=== PATIENT | female | born 1985 | race Caucasian/White ===

== ENCOUNTER 2018-12-10 14:28 | Emergency (ER) | payer SELFPAY ==
--- NOTE | 2018-12-10 16:03 | US ---
ULTRASOUND EXAMINATION OF the right lower extremity WITH DOPPLER HISTORY: Pain FINDINGS: Examination of the right leg was performed from the groin to the calf region. All visualized segments including common femoral, proximal greater saphenous, superficial femoral, popliteal and calf veins appear patent with good compressibility and augmentation. There is no evidence of deep vein thrombosis. There is a filling defect within the right superficial vein of the calf. IMPRESSION: 1. No evidence of a DVT. 2. Likely a small thrombus within a superficial posterior right calf vein.
--- NOTE | 2018-12-10 16:41 | EDM.PDOC ---
ED HPI GENERAL MEDICAL PROBLEM - General Chief Complaint: Lower Extremity Injury/Pain Stated Complaint: BLOOD CLOTS IN LEGS Time Seen by Provider: 12/10/18 16:38 Source of Information: Reports: Patient - History of Present Illness INITIAL COMMENTS - FREE TEXT/NARRATIVE: HISTORY AND PHYSICAL: History of present illness: [Patient presents with history of DVT she has right calf pain she is concerned about the possibility of another DVT there is no redness or swelling with Homans is positive No fever nausea vomiting chills sweats no shortness br eath] Review of systems: As per history of present illness and below otherwise all systems reviewed and negative. Past medical history: As per history of present illness and as reviewed below otherwise noncontributory. Surgical history: As per history of present illness and as reviewed below otherwise noncontributory. Social history: No reported history of drug or alcohol abuse. Family history: As per history of present illness and as reviewed below otherwise noncontributory. Physical exam: HEENT: Atraumatic, normocephalic, pupils reactive, negative for conjunctival pallor or scleral icterus, mucous membranes moist, throat clear, neck supple, nontender, trachea midline. Lungs: Clear to auscultation, breath sounds equal bilaterally, chest nontender. Heart: S1S2, regular, negative for clicks, rubs, or JVD. Abdomen: Soft, nondistended, nontender. Negative for masses or hepatosplenomegaly. Negative for costovertebral tenderness. Pelvis: Stable nontender. Genitourinary: Deferred. Rectal: Deferred. Extremities: Atraumatic, negative for cords or calf pain on the left right Homans positive Neurovascular unremarkable. Neuro: Awake, alert, oriented. Cranial nerves II through XII unremarkable. Cerebellum unremarkable. Motor and sensory unremarkable throughout. Exam nonfocal. Diagnostics: [] venous duplex to rule out DVT Therapeutics: [ continue current medication Follow-up with primary care ] Impression: [ no DVT Medical screening exam ] Definitive disposition and diagnosis as appropriate pending reevaluation and review of above. - Related Data Allergies Allergy/AdvReac Type Severity Reaction Status Date / Time No Known Allergies Allergy Verified 01/14/14 21:25 Home Meds: Home Meds Norgestimate-Ethinyl Estradiol [Patrick-Linyah 28 Tablet] 1 each PO DAILY 12/10/18 [History] Past Medical History - Past Health History Medical/Surgical History: Denies Medical/Surgical History Cardiovascular History: Reports: Blood Clots/VTE/DVT - Infectious Disease History Infectious Disease History: Reports: Chicken Pox Social & Family History - Family History Family Medical History: Noncontributory - Tobacco Use Smoking Status *Q: Current Every Day Smoker Years of Tobacco use: 15 Packs/Tins Daily: 0.5 - Recreational Drug Use Recreational Drug Use: No Review of Systems - Review of Systems Review Of Systems: See Below ED EXAM, GENERAL - Physical Exam Exam: See Below Course - Vital Signs Last Recorded V/S: Last Vital Signs Temp 98.3 F 12/10/18 14:59 Pulse 67 12/10/18 14:59 Resp 20 12/10/18 14:59 BP 136/66 12/10/18 14:59 Pulse Ox 98 12/10/18 14:59 Departure - Departure Time of Disposition: 16:41 Disposition: Home, Self-Care 01 Preliminary Cause of *Q: Sepsis & Multi System Organ Failure Condition: Good Clinical Impression: Encounter for medical screening examination - Discharge Information Referrals: PCP,Unknown [Primary Care Provider] - Additional Instructions: The following information is given to patients seen in the emergency department who are being discharged to home. This information is to outline your options for follow-up care. We provide all patients seen in our emergency department with a follow-up referral. The need for follow-up, as well as the timing and circumstances, are variable depending upon the specifics of your emergency department visit. If you don't have a primary care physician on staff, we will provide you with a referral. We always advise you to contact your personal physician following an emergency department visit to inform them of the circumstance of the visit and for follow-up with them and/or the need for any referrals to a consulting specialist. The emergency department will also refer you to a specialist when appropriate. This referral assures that you have the opportunity for follow-up care with a specialist. All of these measure are taken in an effort to provide you with optimal care, which includes your follow-up. Under all circumstances we always encourage you to contact your private physician who remains a resource for coordinating your care. When calling for follow-up care, please make the office aware that this follow-up is from your recent emergency room visit. If for any reason you are refused follow-up, please contact the [facility] emergency department at and asked to speak to the emergency department charge nurse.
== END 2018-12-10 17:15 | disposition home or self-care (01) ==
LOC: MW.ED 14:28
DX: Z13.9 Encounter for screening, unspecified (principal); F17.210 Nicotine dependence, cigarettes, uncomplicated; Z86.718 Personal history of other venous thrombosis and embolism; Z79.899 Other long term (current) drug therapy
CPT/HCPCS: 93971-26-RT; 93971-RT; 99283-25

== ENCOUNTER 2022-10-11 17:49 | Emergency (ER) | payer BC, OTHER ==
[2022-10-11] MEDS ORDERED: Bacitracin Oint 1 GM U/D Packet TOP STA (18:46)
[2022-10-11] MEDS ORDERED: Diphtheria,Pertussis(Acell),Tetanus Vaccine 0.5 ML Syringe IM ONE (18:47)
[2022-10-11] MEDS: Ketorolac 60 MG/2 ML SDV IM STA ×2 (18:58→19:10)
== END 2022-10-11 19:29 | disposition home or self-care (01) ==
LOC: MW.ED 17:49
DX: T23.202A Burn of second degree of left hand, unspecified site, initial encounter (principal); Z23 Encounter for immunization; X10.2XXA Contact with fats and cooking oils, initial encounter
CPT/HCPCS: 90471; 90715; 99283-25; J1885

== ENCOUNTER 2022-12-22 20:22 | Emergency (ER) | payer BC, OTHER ==
[2022-12-22] MEDS ORDERED: Sodium Chloride 0.9% 1,000 ML IV ONE (20:32)
== END 2022-12-22 23:36 | disposition home or self-care (01) ==
LOC: MW.ED 20:22
DX: F10.929 Alcohol use, unspecified with intoxication, unspecified (principal)
CPT/HCPCS: 96360; 99284; J7030; 99283